=== PATIENT | male | born 1955 | race Caucasian/White ===

== ENCOUNTER 2017-11-01 17:11 | Emergency (ER) | payer BC ==
[2017-11-01] MEDS ORDERED: Aspirin 81 MG Tab.Chew ONE (17:13)
[2017-11-01] MEDS ORDERED: Aspirin 81 MG Tab.Chew PO ONE (17:31)
--- NOTE | 2017-11-01 17:34 | EDM.PDOC ---
ED HPI GENERAL MEDICAL PROBLEM - General Chief Complaint: Cardiovascular Problem Stated Complaint: A FIB Time Seen by Provider: 11/01/17 17:26 Source of Information: Reports: Patient, Family, Old Records, RN Notes Reviewed History Limitations: Reports: No Limitations - History of Present Illness INITIAL COMMENTS - FREE TEXT/NARRATIVE: 62-year-old gentleman presents emergency department day complaint of chest discomfort, he describes it as a bubble on his chest does have a known history of coronary artery disease last stenting was in 2013 also history of atrial fibrillation status post ablation, he states that he's been having palpitations for the last 2 weeks but the chest discomfort started approximately 6 hours prior - Related Data Allergies Allergy/AdvReac Type Severity Reaction Status Date / Time morphine AdvReac Nausea and Verified 07/20/16 17:51 Vomiting Home Meds: Home Meds Aspirin [Halfprin] 81 mg PO DAILY 07/02/16 [History] Cholecalciferol (Vitamin D3) [Vitamin D3] 2,000 unit PO DAILY 07/02/16 [History] Doxazosin Mesylate [Cardura XL] 8 mg PO BEDTIME 07/02/16 [History] Sildenafil Citrate [Viagra] 25 mg PO ASDIRECTED 07/02/16 [History] atorvaSTATin [Lipitor] 40 mg PO BEDTIME 07/02/16 [History] Past Medical History HEENT History: Reports: Sinusitis Cardiovascular History: Reports: Afib, CAD, High Cholesterol, Stents Gastrointestinal History: Reports: Gastritis Genitourinary History: Reports: Other (See Below) Other Genitourinary History: urinary catheter placement intermittent BPH Inlarged prostate. Musculoskeletal History: Reports: Arthritis Other Musculoskeletal History: Torn rotator cuff Neurological History: Reports: Head Trauma Psychiatric History: Reports: Anxiety - Infectious Disease History Infectious Disease History: Reports: Chicken Pox - Past Surgical History Cardiovascular Surgical History: Reports: Cardiac Ablation, Carotid Stents GI Surgical History: Reports: Colonoscopy, EGD Musculoskeletal Surgical History: Reports: Knee Replacement, Shoulder Surgery Social & Family History - Family History Oncologic: Reports: Leukemia, Pancreatic - Tobacco Use Smoking Status *Q: Never Smoker Second Hand Smoke Exposure: No - Caffeine Use Caffeine Use: Reports: Soda - Alcohol Use Days Per Week of Alcohol Use: 0 - Recreational Drug Use Recreational Drug Use: No ED ROS GENERAL - Review of Systems Review Of Systems: See Below Constitutional: Reports: No Symptoms HEENT: Reports: No Symptoms Respiratory: Reports: No Symptoms Cardiovascular: Reports: Chest Pain, Palpitations GI/Abdominal: Reports: No Symptoms : Reports: No Symptoms Musculoskeletal: Reports: No Symptoms Skin: Reports: No Symptoms ED EXAM, GENERAL - Physical Exam Exam: See Below Free Text/Narrative:: General: Male, not in any distress, alert and oriented x3 HEENT: head is atraumatic normocephalic, eyes pupils equal round reactive to light, sclera clear no conjunctivitis appreciated. Ears tympanic membranes clear and wolfe landmarks and light reflex are present bilaterally canals are clear. Nose no septal deviation, nares are clear, no blood present. Mouth mucosa is moist and pink no erythema or exudate noted in soft palate, tongue is midline uvula is midline, dentition is intact. Neck: Supple no thyromegaly no tracheal deviation. Nodes: Cervical nodes subclavicular nodes nontender no palpable lymphadenopathy noted. Lungs: clear to auscultation bilaterally with symmetrical respirations, no adventitious noise appreciated. CV: Regular rate and rhythm S1 and S2 appreciated no murmurs rubs or gallops noted. Abdomen: Soft, nontender, no palpable masses or organomegaly appreciated, no distention no guarding bowel sounds are present, . Neuro: Cranial nerves II through XII grossly intact Skin: Warm and dry, intact Extremities: +1 pitting edema bilaterally Course - Vital Signs Last Recorded V/S: Last Vital Signs Temp 96.3 F 11/01/17 17:24 Pulse 59 L 11/01/17 17:45 Resp 15 11/01/17 17:45 BP 161/85 H 11/01/17 17:45 Pulse Ox 97 11/01/17 17:45 - Orders/Labs/Meds Orders: Active Orders 24 hr Category Date Time Status Cardiac Monitoring [RC] .As Directed Care 11/01/17 17:31 Active EKG Documentation Completion [RC] ASDIRECTED Care 11/01/17 17:32 Active Chest 2V [CR] Stat Exams 11/01/17 17:31 Taken EKG 12 Lead [EK] Stat Ther 11/01/17 17:31 Ordered Labs: Laboratory Tests 11/01/17 11/01/17 12 Range/Units 17:31 17:31 17:31 WBC 7.3 (4.5-11.0) K/uL RBC 4.38 (4.30-5.90) M/uL Hgb 13.2 (12.0-15.0) g/dL Hct 39.7 L (40.0-54.0) % MCV 91 (80-98) fL MCH 30 (27-31) pg MCHC 33 (32-36) % Plt Count 237 (150-400) K/uL Neut % (Auto) 64 (36-66) % Lymph % (Auto) 22 L (24-44) % Pierce % (Auto) 10 H (2-6) % Eos % (Auto) 4 (2-4) % Baso % (Auto) 1 (0-1) % D-Dimer, Quantitative < 100 (0.0-400.0) ng/mL Sodium 143 (140-148) mmol/L Potassium 4.0 (3.6-5.2) mmol/L Chloride 106 (100-108) mmol/L Carbon Dioxide 28 (21-32) mmol/L Anion Gap 9.0 (5.0-14.0) mmol/L BUN 26 H (7-18) mg/dL Creatinine 1.1 (0.8-1.3) mg/dL Est Cr Clr Drug Dosing 77.68 mL/min Estimated GFR (MDRD) > 60 (>60) Glucose 82 (74-106) mg/dL Calcium 8.8 (8.5-10.1) mg/dL Total Bilirubin 0.9 (0.2-1.0) mg/dL AST 24 (15-37) U/L ALT 40 (12-78) U/L Alkaline Phosphatase 85 (46-116) U/L CK-MB (CK-2) 3.1 (0-3.6) mg/mL Troponin I < 0.017 (0.000-0.056) ng/mL Total Protein 6.7 (6.4-8.2) g/dL Albumin 3.8 (3.4-5.0) g/dL Globulin 2.9 (2.3-3.5) g/dL Albumin/Globulin Ratio 1.3 (1.2-2.2) Meds: Medications Discontinued Medications Generic Name Dose Route Start Last Admin Trade Name Freq PRN Reason Stop Dose Admin Aspirin 324 mg 11/01/17 17:31 11/01/17 17:33 Aspirin PO 11/01/17 17:32 324 mg ONETIME ONE Administration Departure - Departure Time of Disposition: 18:54 Disposition: Home, Self-Care 01 Condition: Good Clinical Impression: Atypical chest pain Referrals: Fredy Campbell MD [Primary Care Provider] - Forms: ED Department Discharge Additional Instructions: Resume normal medications, please return to the emergency department worsening of symptoms, follow-up with your primary care in the next 3-5 days for reevaluation - My Orders Last 24 Hours: My Active Orders 11/01/17 17:31 Cardiac Monitoring [RC] .As Directed Chest 2V [CR] Stat EKG 12 Lead [EK] Stat 11/01/17 17:32 EKG Documentation Completion [RC] ASDIRECTED - Assessment/Plan Last 24 Hours: My Active Orders 11/01/17 17:31 Cardiac Monitoring [RC] .As Directed Chest 2V [CR] Stat EKG 12 Lead [EK] Stat 11/01/17 17:32 EKG Documentation Completion [RC] ASDIRECTED Plan: Assessment Acuity = acute Site and laterality = chest pressure, again the patient with known history coronary artery disease heart score 4 Etiology = unclear etiology Manifestations = none Location of injury = Home Lab values = CBC, CMP unremarkable troponin negative d-dimer is negative chest x -ray shows no acute process EKG does have first-degree block with ST depressions V4 5 and 6 however these are not new these were the same EKG results in 2016 Plan I did review lab work EKG results with him as well as chest x-ray I received aspirin in the emergency department otherwise no other treatments he remained asymptomatic while in the ED he is very specific about his pain only happens between 8 and 10 while he is at work he is been chest pain-free over the weekend he has had palpitations now for 2 weeks. Plan is discharge to home he is to follow-up with his primary care for further evaluation will return to the ED for any new developments of symptoms I did offer him hospital admission this time for his chest pressure but he declined Patient was in agreement with the plan all questions were answered, they were instructed to return to the emergency department or call for worsening symptoms. This note was dictated using [employer] voice recognition software please call with any questions.
[2017-11-01 18:03] VITALS: BP 161/85
--- NOTE | 2017-11-04 08:27 | CR ---
Chest 2V HISTORY: Chest Pain COMPARISON: None FINDINGS: Lungs appear clear and normally aerated. Cardiomediastinal silhouette is within normal limits. No vas cular redistribution or pleural fluid can be seen. Small anterolateral osteophytes are noted along th e mid thoracic spine. IMPRESSION: No acute chest abnormality identified.
== END 2017-11-01 19:04 | disposition home or self-care (01) ==
LOC: JP.ED 17:11
DX: R07.89 Other chest pain (principal); I25.10 Atherosclerotic heart disease of native coronary artery without angina pectoris; Z79.82 Long term (current) use of aspirin; Z79.899 Other long term (current) drug therapy
CPT/HCPCS: 36415; 71020; 80053; 82553; 84484; 85025; 85379; 93005; 99284; A9270